=== PATIENT | male | born 1945 | race Caucasian/White ===

== ENCOUNTER 2025-01-11 09:07 | Outpatient (OUT) | payer MEDICARE, SELFPAY ==
--- NOTE | 2025-01-11 09:23 | MR_ITS ---
The [address] [address] Patient Name: SADIA PEARL MRN: [id number] date: 1945 Sex: M Assigned Patient Location: LAB Current Patient Location: LAB Accession/Order Number: [id number] Exam Date: 01/11/2025 09:45 Report Date: 01/11/2025 15:40 At the request of: NON-STAFF PHYSICIAN Procedure: MR lumbar spine wo/w con MR lumbar spine wo/w con 01/11/2025 10:51 AM SIGNS AND SYMPTOMS: Lumbar Spondylosis, Lumbar Mass PROTOCOL: Multiplanar multisequence MR images of the lumbar spine with and without IV contrast CONTRAST: 20 ml of intravenous Dotarem COMPARISON: None. FINDINGS: The bones of the lumbar spine are in anatomic alignment. There is preservation of vertebral body heights. There is bridging anterior osteophyte formation in the lower thoracic and upper lumbar spine. There are Schmorl's nodes in the endplates at L4 and L5. There is Modic type II fatty endplate degenerative change. The conus terminates at the T12-L1 level. No epidural or paraspinous fluid collection is appreciated. There is a simple cyst in the bilateral renal cortex requiring no further follow-up. No abnormal postcontrast enhancement. At T12-L1: There is a normal disc, central canal, and neural foramen. At L1-L2: There is a normal disc, central canal, and neural foramen. At L2-L3: There is a broad-based disc bulge with a focal left subarticular disc protrusion. There is mass effect on the traversing left L3 nerve roots. This contributes to mild to moderate spinal canal stenosis with mild bilateral neural foraminal stenosis. At L3-L4: There is a circumferential disc bulge with facet hypertrophy. There is mild spinal canal narrowing. There is a right subarticular focal disc protrusion. There is moderate spinal canal stenosis. There is mild mass effect on the traversing right L4 nerve roots. There is mild bilateral neural foraminal narrowing. At L4-L5: There is a circumferential disc bulge with facet hypertrophy. There is moderate to severe spinal canal stenosis with moderate to severe right and moderate left neural foraminal stenosis. At L5-S1: There is facet hypertrophy bilaterally. There is endplate osteophyte formation. There is mild left neural foraminal stenosis without significant spinal canal narrowing. MR/MR lumbar spine wo/w con IMPRESSION: At L2-L3: There is a broad-based disc bulge with a focal left subarticular disc protrusion. There is mass effect on the traversing left L3 nerve roots. This contributes to mild to moderate spinal canal stenosis with mild bilateral neural foraminal stenosis. At L3-L4: There is a circumferential disc bulge with facet hypertrophy. There is mild spinal canal narrowing. There is a right subarticular focal disc protrusion. There is moderate spinal canal stenosis. There is mild mass effect on the traversing right L4 nerve roots. There is mild bilateral neural foraminal narrowing. At L4-L5: There is a circumferential disc bulge with facet hypertrophy. There is moderate to severe spinal canal stenosis with moderate to severe right and moderate left neural foraminal stenosis. At L5-S1: There is facet hypertrophy bilaterally. There is endplate osteophyte formation. There is mild left neural foraminal stenosis without significant spinal canal narrowing. Impression dictated by: Zane Rico M.D. 01/11/2025 3:40 PM Dictation Location: [facility]ITAL[facility] Electronically authenticated by: [id number] Y Date: 01/11/2025 15:40
[2025-01-11 09:30] LABS: Estimated GFR (African America >60 (>=60 mL/min/1.73m^2); Estimated GFR (Non-African Ame >60 (>=60 mL/min/1.73m^2)
== END 2025-01-11 09:08 | disposition home or self-care (01) ==
PROVIDERS: Pathology Anatomic Pathology & Clinical Pathology; PCP Family Medicine
DX: M47.816 Spondylosis without myelopathy or radiculopathy, lumbar region (principal); M48.062 Spinal stenosis, lumbar region with neurogenic claudication; M51.369 Other intervertebral disc degeneration, lumbar region without mention of lumbar back pain or lower extremity pain
CPT/HCPCS: 36415; 72158; 82565; A9575